=== PATIENT | male | born 1945 | race Caucasian/White ===

== ENCOUNTER 2018-01-27 07:35 | Emergency (ER) | payer OTHER, BC ==
[~2018-01-27] VITALS: Ht 177.8 cm; Wt 104.7 kg
[~2018-01-27 07:35] MED LIST: AMLODIPINE BESY10 MG PO; ATROVENT H200 INHALA IH; BENEFIBER236 GM PO; COREG25 M1 PO; DIOVAN HCT 31 TABLE1 PO; DITROPAN XL15 MG PO; FLOMAX0.4 MG PO; GLIPIZIDE-METF1 EAC2 PO; LITE COAT ASPI325 M1 PO; LORAZEPAM0.5 MG PO; NEXIUM40 MG PO; NORCO 5/3251 TABLET PO; POTASSIUM CHLO20 ME2 PO; SERTRALINE HCL50 MG PO; TERAZOSIN HCL10 MG PO; TRICOR145 MG PO; VITAMIN D-32000 UNI2 PO
[2018-01-27 08:30] LABS: BASOPHIL (%) 0.7 % (0-1); BASOPHIL COUNT 0.1 K/uL (0-0.1); EOSINOPHIL (%) 3.6 % (0-5); EOSINOPHIL COUNT 0.4 K/uL (0-0.3); HEMATOCRIT 33.9 % (38.0-50.0); HEMOGLOBIN 11.8 G/DL (12.5-16.6); IMMATURE GRANULOCYTE (%) 0.4 % (0.0-0.7); LYMPHOCYTE (%) 19.7 % (15-42); LYMPHOCYTE COUNT 2.1 K/uL (1.0-2.8); MCH 30.8 PG (29.0-34.0); MCHC 34.8 G/DL (30.0-36.0); MCV 88.5 FL (86-99); MONOCYTE (%) 9.1 % (3-12); NEUTROPHIL (%) 66.5 % (45-76); NEUTROPHIL COUNT 7.1 K/uL (1.8-6.4); PLATELET COUNT 218 K/uL (156-360); RBC DIS.WIDTH-CV 12.7 % (11.8-14.6); RBC DIS.WIDTH-SD 41.1 % (39-53); RED BLOOD COUNT 3.83 M/uL (4.00-5.50); WHITE BLOOD COUNT 10.7 K/uL (4.1-10.2)
[2018-01-27] MEDS ORDERED: VISINE A.C300 DROP/1 BOTH EYES (08:35)
[2018-01-27 08:37] LABS: INTER. NORMALIZED RATIO 1.3
[2018-01-27 08:39] LABS: PTT 28.2 SEC (25-37)
[2018-01-27 08:44] LABS: CHLORIDE 98 mEq/L (99-109); POTASSIUM 3.3 mEq/L (3.7-5.4); SODIUM 134 mEq/L (136-147)
[2018-01-27 08:45] LABS: GLUCOSE 178 mg/dL (70-99)
[2018-01-27 08:49] LABS: CREATININE 0.8 mg/dL (0.6-1.3); GFR ESTIMATE (CALCULATED) > 59 mL/min/ (58.99-99999)
[2018-01-27 08:50] LABS: UREA NITROGEN (BUN) 12 mg/dL (9-23)
[2018-01-27 08:54] LABS: TROP-I INTERPRETATION NEGATIVE; TROPONIN-I 0.02 ng/mL (0.0-0.30)
[2018-01-27] MEDS ORDERED: ZITHROMAX Z-PA250 MG PO (09:57)
[2018-01-27] MEDS ORDERED: PROVENTIL HFA6.7 GM IH (09:57)
[2018-01-27 10:23] VITALS: BP 140/72
== END 2018-01-27 10:25 | disposition home or self-care (01) ==
LOC: EME 07:35
PROVIDERS: Emergency Medicine
DX: J20.9 Acute bronchitis, unspecified (principal); E11.9 Type 2 diabetes mellitus without complications; Z79.84 Long term (current) use of oral hypoglycemic drugs; E78.5 Hyperlipidemia, unspecified; Z85.828 Personal history of other malignant neoplasm of skin
CPT/HCPCS: 71045; 80048; 83880; 84484; 85025; 85610; 85730; 93005; 99281; 99284